=== PATIENT | female | born 1970 | race Caucasian/White ===

== ENCOUNTER 2017-09-15 04:05 | Emergency (ER) | payer BC ==
[~2017-09-15] VITALS: Ht 162.6 cm; Wt 63.0 kg
[2017-09-15 04:20] VITALS: BP 187/104
--- NOTE | 2017-09-15 04:24 | Emergency Room Report ---
History of Present Illness General Chief Complaint: Abdominal Pain Source: Patient (ALIS ARNOLD D.O.) Present Illness HPI Patient present with complaints of diffuse abdominal discomfort also sensation of nausea patient reports that she feels that she has combination of flu and food poisoning Denies any vomiting she does have increased nausea However she's had multiple diarrhea episodes Denies any blood in the diarrhea Denies any flank pain At this time she reports that her abdominal pain has done so significant However she feels more nauseous denies any recent travel Denies any fevers she has had some chills denies any rash (ALIS ARNOLD.Dharmesh) Allergies: Uncoded Allergies: IV CONTRAST (Allergy, Unknown, 09/15/17) HIVES Patient History Past Medical History: see triage record Pertinent Family History: none Last Menstrual Period: september 08 Now: No Reviewed Nursing Documentation: PMH: Agreed, PSxH: Agreed (ALIS ARNOLD D.O.) Past Medical History: see triage record Past Surgical History: none Pertinent Family History: none Reviewed Nursing Documentation: PMH: Agreed, PSxH: Agreed (Josie Alvarenga M.D. ) Review of Systems All Other Systems: negative except mentioned in HPI (ALIS [email or web address].[email or web address]) Physical Exam Vital Signs Date Time Temp Pulse Resp B/P (MAP) Pulse Ox O2 Delivery O2 Flow Rate FiO2 09/15/17 04:09 99.7 132 20 187/104 96 Room Air Sp02 EP Interpretation: reviewed, normal General Appearance: well appearing, no apparent distress Head: normocephalic, atraumatic Eyes: bilateral eye PERRL, bilateral eye EOMI ENT: hearing grossly normal, normal pharynx, TMs + canals normal, uvula midline Neck: full range of motion, supple, no meningismus, no bony tend Respiratory: lungs clear, normal breath sounds, no rhonchi, no respiratory distress, no retraction, no accessory muscle use Cardiovascular #1: normal peripheral pulses, no edema, no gallop, no JVD, no murmur, tachycardia Gastrointestinal: normal bowel sounds, non tender, soft, no mass, no organomegaly, non-distended, no guarding, no hernia, no pulsatile mass, no rebound Genitourinary: no CVA tenderness Musculoskeletal: normal inspection Neurologic: oriented x3, responsive, order builder loader III-XII nml as tested, motor strength/ tone normal, sensory intact Psychiatric: mood/affect normal Skin: normal color, no rash, warm/dry, palpation normal Lymphatic: normal inspection, no adenopathy (ALIS ARNOLD D.O.) Medical Decision Making ER Course I received signout Please see above for full history and physical 47-year-old female with abdominal pain for 6 hours. States that it is above her umbilicus Now currently pain-free, repeat abdominal exam is nontender CT scan of the abdomen and pelvis is showing possible tip appendicitis We paged Dr. Mac at 7am, again 8am but no answer. Dr Krause saw patient at bedside Repeat abdominal exams have been nontender Stable to be discharged home Strict return precautions (Josie Alvarenga M.D.) Last Vital Signs Date Time Temp Pulse Resp B/P (MAP) Pulse Ox O2 Delivery O2 Flow Rate FiO2 09/15/17 04:09 99.7 132 20 187/104 96 Room Air (ALIS ARNOLD D.O.) Disposition: HOME, SELF-CARE Condition: Improved Scripts Ciprofloxacin Hcl* (CIPROFLOXACIN HCL*) 500 Mg Tablet 500 MG ORAL Q12H, #14 TAB 0 Refills Prov: ALIS ARNOLD D.O. 09/15/17 Ondansetron Odt* (ZOFRAN ODT*) 4 Mg Tab.rapdis 4 MG ORAL Q8H Y for Nausea & Vomiting, #12 TAB 0 Refills Prov: ALIS ARNOLD D.O. 09/15/17 ALIS ARNOLD D.O. Sep 15, 2017 04:24 Josie Alvarenga M.D. Sep 15, 2017 08:34
[2017-09-15] MEDS ORDERED: DiphenhydrAMINE 50mg/ml Inj IVP ONE (04:30)
[2017-09-15 05:07] LABS: APPEARANCE,URINE CLEAR; BILIRUBIN, URINE NEGATIVE (NEGATIVE); COLOR,URINE PALE YELLOW; GLUCOSE, URINE (UA) NEGATIVE (NEGATIVE); KETONES,URINE NEGATIVE (NEGATIVE); LEUKOCYTE ESTERASE ,URINE NEGATIVE (NEGATIVE); NITRITE,URINE NEGATIVE (NEGATIVE); PH,URINE 5 (4.5-8.0); PROTEIN,URINE NEGATIVE (NEGATIVE); UROBILINOGEN,URINE NORMAL MG/DL (0.0-1.0)
[2017-09-15 05:12] LABS: BASOPHILS % (AUTO) 1.3 % (0.0-2.0); EOSINOPHILS % (AUTO) 0.2 % (0.0-3.0); HEMATOCRIT 42.1 % (37.0-47.0); HEMOGLOBIN 13.7 G/DL (12.0-16.0); LYMPHOCYTES % (AUTO) 36.7 % (20.0-45.0); MEAN CORPUSCULAR VOLUME 98 FL (80-99); MONOCYTES % (AUTO) 4.6 % (1.0-10.0); NEUTROPHILS % (AUTO) 57.1 % (45.0-75.0); PLATELET COUNT 347 K/UL (150-450); RED BLOOD COUNT 4.31 M/UL (4.20-5.40); RED CELL DISTRIBUTION WIDTH 12.1 % (11.6-14.8); WHITE BLOOD COUNT 9.1 K/UL (4.8-10.8)
[2017-09-15 05:20] LABS: ANION GAP 13 mmol/L (5-15); BLOOD UREA NITROGEN 6 mg/dL (7-18); CALCIUM 9.6 MG/DL (8.5-10.1); CARBON DIOXIDE 23 MMOL/L (21-32); CHLORIDE 107 MMOL/L (98-107); CREATININE 0.8 MG/DL (0.55-1.30); POTASSIUM 3.7 MMOL/L (3.5-5.1); SODIUM 143 MMOL/L (136-145)
[2017-09-15 05:27] LABS: ALANINE AMINOTRANSFERASE 35 U/L (12-78); ALKALINE PHOSPHATASE 47 U/L (46-116); ASPARTATE AMINO TRANSFERASE 18 U/L (15-37); BILIRUBIN,TOTAL 0.2 MG/DL (0.2-1.0)
[2017-09-15 05:30] VITALS: BP 162/86
[2017-09-15] MEDS ORDERED: ZOFRAN ODT4 MG ORAL (06:07)
[2017-09-15] MEDS ORDERED: CIPROFLOXACIN500 M2 ORAL (06:07)
[2017-09-15 07:19] VITALS: BP 144/79
[2017-09-15 09:30] VITALS: BP 137/70
--- NOTE | 2017-09-15 09:35 | Diagnostic Imaging Report ---
Indication: Abdominal pain Technique: Continuous helical transaxial imaging of the abdomen and pelvis was obtained from the lung bases to the pubic symphysis. No intravenous contrast was administered. Coronal 2-D reformats were also obtained. Automatic Exposure Control was utilized. Total Dose length Product (DLP): 651.[address] Dose Index Volume (CTDIvol): 12.57 mGy Comparison: none Findings: The appendix is well-demonstrated and fairly long. The tip of the appendix is more prominent than the majority of the length of the appendix measuring in the upwards of 8 to 9 mm (for example image 108-110 of series 3.) There is subclinical concern for acute appendicitis, suggest follow-up examination. There is no abscess. There is no inflammation in the periappendiceal fat identified. Accessory spleen noted. Gallbladder is unremarkable. There is no hydronephrosis or nephrolithiasis. No free fluid or free air identified. IMPRESSION: Prominence of the tip of the appendix which is seen low within the pelvis near the rectosigmoid region. If there is clinical concern for appendicitis suggest repeat examination and clinical monitoring. [facility] has communicated the preliminary results to the Emergency Department. Their findings are largely concordant with this report. The CT scanner at [facility] is accredited by the [employer] and the scans are performed using dose optimization techniques as appropriate to a performed exam including Automatic Exposure control.
[2017-09-15 10:15] VITALS: BP 142/82
--- NOTE | 2017-09-15 11:10 | Consultation ---
History of Present Illness General Date patient seen: Sep 15, 2017 Time patient seen: 09:00 Chief Complaint: Abdominal Pain Reason for Consultation: abdominal pain; r/o appy Present Illness HPI 47F otherwise healthy was in her normal state of health until yesterday evening when she began to have some nausea. not long after onset of nausea she developed some lower abdominal cramping and began to have diarrhea. cramping described as lower abdominal 8/10 intermittent cramping without radiation. nausea onset prior to cramping. no emesis. diarrhea non bloody, no mucus. as cramping did not improve she came to ED for evaluation. states that since she has been in ED cramping has resolved. nausea now resolved as well. CT scan performed and identified thickening at tip of appendix but no other pathology. labs ordered and normal. no leukocytosis, no shift. surgery called to evaluate abdominal pain given CT findings. patient states she has similar episode with diarrhea and cramping around Carolyn time which resolved without intervention but cramping was not as severe. denies pmhx, only cosmetic surgical history, fhx non contributory. Allergies: Uncoded Allergies: IV CONTRAST (Allergy, Unknown, 09/15/17) HIVES Medication History Scheduled Ciprofloxacin Hcl* (Ciprofloxacin Hcl*), 500 MG ORAL Q12H Scheduled PRN Ondansetron Odt* (Zofran Odt*), 4 MG ORAL Q8H PRN for Nausea & Vomiting Patient History History Provided By: Patient Healthcare decision maker Resuscitation status Advanced Directive on File Review of Systems Constitutional: Denies: no symptoms, see HPI, chills, sweats, fever, malaise, weakness, other Eye: Denies: no symptoms, see HPI, eye pain, blurred vision, tearing, double vision, nose pain, nose congestion, acuity changes, discharge, other ENT: Denies: no symptoms, see HPI, ear pain, ear discharge, nose pain, nose congestion, throat pain, throat swelling, mouth pain, hearing loss, nasal discharge, other Respiratory: Denies: no symptoms, see HPI, cough, orthopnea, shortness of breath, stridor, wheezing, DEJESUS, sputum, other Cardiovascular: Denies: no symptoms, see HPI, chest pain, edema, palpitations, syncope, PND, other Gastrointestinal: Reports: abdominal pain, diarrhea, nausea Genitourinary: Denies: no symptoms, see HPI, discharge, dysuria, frequency, hematuria, pain, retention, incontinence, urgency, vag bleed/dc, other Musculoskeletal: Denies: no symptoms, see HPI, back pain, gout, joint pain, joint swelling, muscle pain, muscle stiffness, other Skin: Denies: no symptoms, see HPI, rash, change in color, change in hair/nails , dryness, lesions, other Psychiatric: Denies: no symptoms, see HPI, prior hx, anxiety, depressed feelings, emotional problems, SI, HI, hallucinations, other Neurological: Denies: no symptoms, see HPI, headache, numbness, paresthesia, seizure, tingling, tremors, focal weakness, syncope, dizziness, other Endocrine: Denies: no symptoms, see HPI, excessive sweating, flushing, intolerance to temperature, increased thirst, increased urine, unexplained weight loss, other Hematologic/Lymphatic: Denies: no symptoms, see HPI, anemia, blood clots, easy bleeding, easy bruising, swollen glands, diathesis, other Physical Exam General Appearance: WD/WN, no apparent distress, alert Lines, tubes and drains: peripheral HEENT: normocephalic, atraumatic, mucous membranes moist, PERRL Neck: normal alignment, normal inspection Respiratory/Chest: chest wall non-tender, lungs clear, normal breath sounds, no respiratory distress, no accessory muscle use Cardiovascular/Chest: normal peripheral pulses, normal rate, regular rhythm Abdomen: normal bowel sounds, non tender, soft, no organomegaly, no mass, other - soft, nt/nd, no gaurding, no rebound. Extremities: normal range of motion, non-tender Skin Exam: normal pigmentation Neurologic: alert, oriented x 3, responsive Last 24 Hour Vital Signs Date Time Temp Pulse Resp B/P (MAP) Pulse Ox O2 Delivery O2 Flow Rate FiO2 09/15/17 10:15 88 16 142/82 98 Room Air 09/15/17 09:30 81 15 137/70 97 Room Air 09/15/17 07:19 95 18 144/79 97 Room Air 09/15/17 05:30 109 16 162/86 100 Room Air 09/15/17 04:20 99.7 20 187/104 96 Room Air 09/15/17 04:09 99.7 132 20 187/104 96 Room Air Intake and Output 09/14/17 09/15/17 19:00 07:00 Intake Total 0 ml Balance 0 ml Intake Oral 0 ml Laboratory Tests Test 09/15/17 04:20 09/15/17 04:40 Urine Color Pale yellow Urine Appearance Clear Urine pH 5 (4.5-8.0) Urine Specific [place] 1.015 (1.005-1.035) Urine Protein Negative (NEGATIVE) Urine Glucose (UA) Negative (NEGATIVE) Urine Ketones Negative (NEGATIVE) Urine Occult Blood Negative (NEGATIVE) Urine Nitrite Negative (NEGATIVE) Urine Bilirubin Negative (NEGATIVE) Urine Urobilinogen Normal MG/DL (0.0-1.0) Urine Leukocyte Esterase Negative (NEGATIVE) Urine HCG, Qualitative Negative Urine Opiates Screen Negative (NEGATIVE) Urine Barbiturates Screen Negative (NEGATIVE) Phencyclidine (PCP) Screen Negative (NEGATIVE) Urine Amphetamines Screen Negative (NEGATIVE) Urine Benzodiazepines Screen Negative (NEGATIVE) Urine Cocaine Screen Positive (NEGATIVE) H Urine Marijuana (THC) Screen Negative (NEGATIVE) White Blood Count 9.1 K/UL (4.8-10.8) Red Blood Count 4.31 M/UL (4.20-5.40) Hemoglobin 13.7 G/DL (12.0-16.0) Hematocrit 42.1 % (37.0-47.0) Mean Corpuscular Volume 98 FL (80-99) Mean Corpuscular Hemoglobin 31.7 PG (27.0-31.0) H Mean Corpuscular Hemoglobin Concent 32.5 G/DL (32.0-36.0) Red Cell Distribution Width 12.1 % (11.6-14.8) Platelet Count 347 K/UL (150-450) Mean Platelet Volume 6.5 FL (6.5-10.1) Neutrophils (%) (Auto) 57.1 % (45.0-75.0) Lymphocytes (%) (Auto) 36.7 % (20.0-45.0) Monocytes (%) (Auto) 4.6 % (1.0-10.0) Eosinophils (%) (Auto) 0.2 % (0.0-3.0) Basophils (%) (Auto) 1.3 % (0.0-2.0) Sodium Level 143 MMOL/L (136-145) Potassium Level 3.7 MMOL/L (3.5-5.1) Chloride Level 107 MMOL/L (98-107) Carbon Dioxide Level 23 MMOL/L (21-32) Anion Gap 13 mmol/L (5-15) Blood Urea Nitrogen 6 mg/dL (7-18) L Creatinine 0.8 MG/DL (0.55-1.30) Estimat Glomerular Filtration Rate > 60 mL/min (>60) Glucose Level 101 MG/DL (74-106) Calcium Level 9.6 MG/DL (8.5-10.1) Total Bilirubin 0.2 MG/DL (0.2-1.0) Aspartate Amino Transf (AST/SGOT) 18 U/L (15-37) Alanine Aminotransferase (ALT/SGPT) 35 U/L (12-78) Alkaline Phosphatase 47 U/L (46-116) Total Protein 7.9 G/DL (6.4-8.2) Albumin 4.0 G/DL (3.4-5.0) Globulin 3.9 g/dL Albumin/Globulin Ratio 1.0 (1.0-2.7) Lipase 215 U/L (73-393) Height (Feet): 5 Height (Inches): 4.00 Weight (Pounds): 139 Assessment/Plan Problem List: (1) Abdominal pain ICD Codes: R10.9 - Unspecified abdominal pain SNOMED: 54974362 Qualifiers: Qualified Codes: R10.30 - Lower abdominal pain, unspecified (2) Diarrhea ICD Codes: R19.7 - Diarrhea, unspecified SNOMED: 11038996 Qualifiers: Qualified Codes: R19.7 - Diarrhea, unspecified (3) Enteritis ICD Codes: K52.9 - Noninfective gastroenteritis and colitis, unspecified SNOMED: 73608719 Status: stable Assessment/Plan 47F with abdominal pain, nausea, diarrhea. afebrile, HD stable, labs okay. Exam benign. CT with tip of appendix inflammation. discussed findings with patient. discussed labs, CT, exam, and presentation. her history and exam are not consistent with acute appendicitis but her onset was only a few hours ago so maybe very early but unlikely. CT findings of tip inflammation vague and exam not consistent. labs normal. recent onset diarrhea likely mild enteritis. symptoms have resolved while in ED. after discussing above decision made to d/c home with precautions. will return if worsening condition. office information given to patient for follow up. okay to d/c from surgical standpoint. patient will stay hydrated and is aware of what to look out for. she will return to ED, PCP, or office if pain returns. Rodrick Krause Sep 15, 2017 11:10
== END 2017-09-15 10:19 | disposition home or self-care (01) ==
LOC: EMR 04:27
DX: K52.9 Noninfective gastroenteritis and colitis, unspecified (principal); R10.30 Lower abdominal pain, unspecified; Z91.041 Radiographic dye allergy status
CPT/HCPCS: 36415; 74176; 80053; 80307; 81003; 81025; 83690; 85025; 96361; 96374; 96375; 99284; J1200; J2405; S0028